=== PATIENT | female | born 1970 | race Caucasian/White ===

== ENCOUNTER 2020-08-14 16:02 | Emergency (ER) | payer OTHER ==
[~2020-08-14] VITALS: Ht 142.2 cm; Wt 79.4 kg
[2020-08-14 16:07] VITALS: BP 141/85
[2020-08-14] MEDS ORDERED: LIDOCAINE MPF 1% 10 MG/ML VIAL INJ ONE ×2 (16:20→16:50)
[2020-08-14] MEDS ORDERED: BACITRACIN OINT 500 UNITS/GM PKT TP ONE (16:20)
[2020-08-14] MEDS ORDERED: IBUPROFEN 600 MG TAB PO ONE (16:25)
--- NOTE | 2020-08-14 17:24 | NUR ---
Patient discharged with v/s stable. Written and verbal after care instructions given and explained. Patient alert, oriented and verbalized understanding of instructions. Ambulatory with steady gait. All questions addressed prior to discharge. ID band removed. Patient advised to follow up with PMD. Rx of KEFLEX AND MOTRIN given. Patient educated on indication of medication including possible reaction and side effects. Opportunity to ask questions provided and answered.
== END 2020-08-14 17:24 | disposition home or self-care (01) ==
LOC: MED 16:02
DX: S61.012A Laceration without foreign body of left thumb without damage to nail, initial encounter (principal); W26.0XXA Contact with knife, initial encounter; Y93.89 Activity, other specified; Y92.89 Other specified places as the place of occurrence of the external cause; Y99.8 Other external cause status
CPT/HCPCS: 12001; 73140; 90471; 90715; 99283; J2001; Q0092

== ENCOUNTER 2020-08-16 14:17 | Emergency (ER) | payer OTHER ==
[~2020-08-16] VITALS: Ht 142.2 cm; Wt 87.5 kg
[2020-08-16 14:20] VITALS: BP 130/63
--- NOTE | 2020-08-16 14:22 | NUR ---
AMB TO BED 11
--- NOTE | 2020-08-16 14:40 | NUR ---
50 y/o F presents to ER for suture removal. Per pt she cut her left first digit with a knife while cooking 2 days ago. Area still appears open. Pt is a diabetic and taking her insulin regularly. Allergies: NKA Med hx: DM and HTN
--- NOTE | 2020-08-16 14:41 | NUR ---
Dr. Eng evaluating pt at bedside
[2020-08-16] MEDS ORDERED: BACITRACIN OINT 500 UNITS/GM PKT TP ONE (14:50)
--- NOTE | 2020-08-16 15:00 | NUR ---
Bacitracin applied to suture area and wrapped with gauze
[2020-08-16 15:05] VITALS: BP 130/63
--- NOTE | 2020-08-16 15:05 | NUR ---
Patient discharged with v/s stable. Written and verbal after care instructions given and explained to return to ER in 5 days. Patient verbalized understanding. Ambulatory with steady gait. All questions addressed prior to discharge. Advised to follow up with PMD.
== END 2020-08-16 15:05 | disposition home or self-care (01) ==
LOC: MED 14:17
DX: S41.112D Laceration without foreign body of left upper arm, subsequent encounter (principal); X58.XXXD Exposure to other specified factors, subsequent encounter
CPT/HCPCS: 99282

== ENCOUNTER 2020-08-21 16:07 | Emergency (ER) | payer OTHER ==
[~2020-08-21] VITALS: Ht 142.2 cm; Wt 86.2 kg
[2020-08-21 16:10] VITALS: BP 156/90
--- NOTE | 2020-08-21 16:12 | NUR ---
PT AMBULATED TO ER BED 04
--- NOTE | 2020-08-21 16:16 | NUR ---
SUTURE REMOVAL AT BED SIDE PA NOTIFIED
--- NOTE | 2020-08-21 16:24 | NUR ---
ERMD AT BEDSIDE FOR PROCEDURE
[2020-08-21] MEDS ORDERED: BACITRACIN OINT 500 UNITS/GM PKT TP ONE (16:25)
--- NOTE | 2020-08-21 16:30 | NUR ---
50 YEAR OLD FEMALE CAME FOR SUTURE REMOVAL ON LEFT THUMB. PT AOX4, BREATHING EVEN AND UNLABORED, SKIN WARM AND DRY. BED IN LOWEST POSITION, LOCKED, BED RAIL UPX1.
--- NOTE | 2020-08-21 16:36 | NUR ---
APPLIED BACITRACIN ON PT LEFT THUMB, DRESSED WITH NON-ADHERENT AND GUAZE ROLL
--- NOTE | 2020-08-21 16:45 | NUR ---
Patient discharged with v/s stable. Written and verbal after care instructions about suture removal given and explained. Patient alert, oriented and verbalized understanding of instructions. Ambulatory with steady gait. All questions addressed prior to discharge. ID band removed. Patient advised to follow up with PMD. Rx of bacitracin given. Patient educated on indication of medication including possible reaction and side effects. Opportunity to ask questions provided and answered.
== END 2020-08-21 16:45 | disposition home or self-care (01) ==
LOC: MED 16:07
DX: S61.012D Laceration without foreign body of left thumb without damage to nail, subsequent encounter (principal); E11.9 Type 2 diabetes mellitus without complications; I10 Essential (primary) hypertension; Z98.890 Other specified postprocedural states; X58.XXXD Exposure to other specified factors, subsequent encounter
CPT/HCPCS: 99282